=== PATIENT | female | born 2000 | race Caucasian/White ===

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

== ENCOUNTER 2023-11-21 19:41 | Emergency (ER) | payer BC, MEDICAID, OTHER ==
[2023-11-21 20:14] VITALS: PULSE 70
[2023-11-21 20:34] LABS: APPEARANCE,URINE CLOUDY (Clear); BILIRUBIN,URINE NEGATIVE (Negative); COLOR,URINE DARK YELLOW (Yellow); GLUCOSE,URINE TRACE (Negative); KETONES,URINE NEGATIVE (Negative); LEUKOCYTE ESTERASE,URINE 3+ (Negative); NITRITE,URINE POSITIVE (Negative); OCCULT BLOOD,URINE 1+ (Negative); PH,URINE 6.5 (5.0-8.0); PROTEIN,URINE 1+ (Negative); UROBILINOGEN,URINE 0.2 (0.2-1.0)
[2023-11-21] MEDS: Ketorolac 30 MG/ML SDV IM ONE (20:38)
[2023-11-21] MEDS: cefTRIAXone 1 GM Vial IM ONE (20:38)
[2023-11-21 21:07] VITALS: BP 115/48
[2023-11-21 21:11] LABS: BACTERIA,URINE MODERATE /hpf (FEW); MUCUS,URINE FEW /hpf (FEW); SQUAMOUS EPITHELIAL CELLS,UR 0-5 /hpf (0-5); WBC,URINE 75-100 /hpf (0-5)
== END 2023-11-21 21:09 | disposition home or self-care (01) ==
LOC: JD.ED 19:41
DX: N39.0 Urinary tract infection, site not specified (principal); Z79.899 Other long term (current) drug therapy; Z88.6 Allergy status to analgesic agent
CPT/HCPCS: 81001; 87086; 96372; 99283; J0696; J1885; 87088; 87186